=== PATIENT | female | born 1975 | race Caucasian/White ===

== ENCOUNTER 2017-03-29 14:29 | Emergency (ER) | payer BC, OTHER ==
[2017-03-29 14:46] VITALS: BP 125/74
--- NOTE | 2017-03-29 15:40 | EDM.PDOC ---
ED HPI GENERAL MEDICAL PROBLEM - General Chief Complaint: General Stated Complaint: foot pain Time Seen by Provider: 03/29/17 15:20 Source of Information: Reports: RN - History of Present Illness INITIAL COMMENTS - FREE TEXT/NARRATIVE: 3 days ago she was breaking up some tree branches that were in her yard in preparation for a bonfire. A branch was propped against the fire pit and she tried to break the branch using her left foot while wearing flip flop sandals. The branch was about 1 inch and was dry because it was from last summer. The branch broke at which point she had pain across the top of her foot, but it wasn 't too severe. She went for a walk the next day which was yesterday while wearing ankle weights. The pain increased and radiates into the ankle. Originally there was no ankle pain. She has noted some swelling across the top of the mid-foot. She has used crutches in the past. History of right foot fracture twice in the past and has used crutches. 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: Acetaminophen, NSAIDS Left Feet Pain Score (Numeric/FACES): 8 - Related Data Allergies Allergy/AdvReac Type Severity Reaction Status Date / Time acetaminophen [From Vicodin] Allergy Rash Verified 03/29/17 14:32 hydrocodone bitartrate Allergy Rash Verified 03/29/17 14:32 [From Vicodin] Home Meds: Home Meds FLUoxetine [PROzac] 20 mg PO DAILY 03/29/16 [History] Omeprazole [Omeprazole] 20 mg PO DAILY 03/29/16 [History] Zolpidem Tartrate [Zolpidem Tartrate] 5 mg PO DAILY 03/29/16 [History] lamoTRIgine [Lamotrigine] 25 mg PO DAILY 03/29/16 [History] Past Medical History Cardiovascular History: Reports: High Cholesterol, Hypertension, [place] Respiratory History: Reports: Asthma, Bronchitis, Recurrent Gastrointestinal History: Reports: Cholelithiasis, Gastritis, GERD Musculoskeletal History: Reports: Arthritis, Fracture, Fibromyalgia Other Musculoskeletal History: hairline fx to arm in 5th grade unk arm, right toe fracture8 yrs ago and right foot fracture 8 yrs ago Neurological History: Reports: Concussion, Migraines Other Neuro History: 1991- concussion Psychiatric History: Reports: Anxiety, Bipolar, Depression Endocrine/Metabolic History: Reports: Diabetes, Type II Dermatologic History: Reports: Other (See Below) - Infectious Disease History Infectious Disease History: Reports: Measles - Past Surgical History GI Surgical History: Reports: Cholecystectomy Female Surgical History: Reports: Hysterectomy, Tubal Ligation Musculoskeletal Surgical History: Reports: Other (See Below) Social & Family History - Family History Family Medical History: Noncontributory - Tobacco Use Smoking Status *Q: Current Every Day Smoker Years of Tobacco use: 20 Packs/Tins Daily: 0.5 Second Hand Smoke Exposure: Yes - Caffeine Use Caffeine Use: Reports: Soda, Other Other Caffeine Use: IVETT caffeine drops (water flavoring) - Alcohol Use Days Per Week of Alcohol Use: 1 Number of Drinks Per Day: 6 Total Drinks Per Week: 6 - Recreational Drug Use Recreational Drug Use: No ED ROS GENERAL - Review of Systems Review Of Systems: ROS reveals no pertinent complaints other than HPI. ED EXAM, GENERAL - Physical Exam Exam: See Below Peripheral Pulses: 2+: Posterior Tibial (L), Dorsalis Pedis (L) Back Exam: Other Extremities: No Pedal Edema, Other (No left foot or ankle edema. Tender across dorsum of mid-foot and diffusely across the forefoot without toe tenderness. [place] toe nail pashto. Diffuse tenderness across the plantar foot. Palpation of the foot causes pain in the ankle, espacially near the medial malleolus. Mild tenderness at the medial malleolus at the soft tissues without any swelling. No calf tenderness. Toes with good perfusion and not tender.). No: Non-Tender, Pedal Edema, Slow Capillary Refill, Joint Swelling Course - Vital Signs Last Recorded V/S: Last Vital Signs Temp 99.9 F 03/29/17 14:35 Pulse 81 03/29/17 14:35 Resp 16 03/29/17 14:35 BP 125/74 03/29/17 14:35 Pulse Ox 97 03/29/17 14:35 - Orders/Labs/Meds Orders: Active Orders 24 hr Category Date Time Status Foot Comp Min 3V Lt [CR] Stat Exams 03/29/17 14:56 Taken Departure - Departure Time of Disposition: 15:47 Disposition: Home, Self-Care 01 Condition: good Clinical Impression: Sprain of foot, left Qualifiers: Encounter type: initial encounter Qualified Code(s): S93.602A - Unspecified sprain of left foot, initial encounter Ankle sprain Qualifiers: Encounter type: initial encounter Laterality: left - Discharge Information Instructions: Crutch Use, Foot Sprain, Ankle Sprain, [id number] Forms: ED Department Discharge - My Orders Last 24 Hours: My Active Orders 03/29/17 14:56 Foot Comp Min 3V Lt [CR] Stat - Assessment/Plan Last 24 Hours: My Active Orders 03/29/17 14:56 Foot Comp Min 3V Lt [CR] Stat
== END 2017-03-29 16:13 | disposition home or self-care (01) ==
LOC: LL.ED 14:29
DX: S93.602A Unspecified sprain of left foot, initial encounter (principal); E78.00 Pure hypercholesterolemia, unspecified; I10 Essential (primary) hypertension; I25.2 Old myocardial infarction; J45.909 Unspecified asthma, uncomplicated; K21.9 Gastro-esophageal reflux disease without esophagitis; F31.9 Bipolar disorder, unspecified; Z90.710 Acquired absence of both cervix and uterus; F17.210 Nicotine dependence, cigarettes, uncomplicated; Z88.5 Allergy status to narcotic agent; Z88.6 Allergy status to analgesic agent; Z90.49 Acquired absence of other specified parts of digestive tract; Z79.899 Other long term (current) drug therapy; X58.XXXA Exposure to other specified factors, initial encounter
CPT/HCPCS: 73630-LT; 99283

== ENCOUNTER 2017-08-04 20:31 | Emergency (ER) | payer BC ==
--- NOTE | 2017-08-04 20:34 | EDM.PDOC ---
ED HPI GENERAL MEDICAL PROBLEM - General Chief Complaint: Lower Extremity Injury/Pain Stated Complaint: left foot pain Time Seen by Provider: 08/04/17 20:32 Source of Information: Reports: Patient, Family (), Old Records ([facility] EMR. No paper hospital chart available.) History Limitations: Reports: No Limitations - History of Present Illness INITIAL COMMENTS - FREE TEXT/NARRATIVE: Patient was brought to the emergency room via private automobile by her for evaluation of 06/28 left foot pain after dropping a can of beans on her foot at home at 17:00 hours. She has been able to walk on the extremity with minimal difficulties with no history of foreign body, laceration, etc.. She has not fractured this foot in the past. No treatment prior to arrival to this facility. Onset: Today, Sudden Onset Date: 08/04/17 Onset Time: 17:00 Duration: Constant Location: Reports: Lower Extremity, Left. Denies: Radiates to Quality: Reports: Ache, Burning, Same as Previous Episode, Stabbing Severity: Severe Improves with: Reports: Rest Worsens with: Reports: Movement Context: Reports: Trauma (As above) Associated Symptoms: Denies: Confusion, Chest Pain, Cough, Diaphoresis, Fever/ Chills, Headaches, Loss of Appetite, Nausea/Vomiting, Shortness of Breath, Syncope, Weakness Treatments REINFORCED IRONWORKER: Reports: Other (see below) (None) left foot Pain Score (Numeric/FACES): 9 - Related Data Allergies Allergy/AdvReac Type Severity Reaction Status Date / Time acetaminophen [From Vicodin] Allergy Rash Verified 08/04/17 20:37 hydrocodone bitartrate Allergy Rash Verified 08/04/17 20:37 [From Vicodin] Home Meds: Home Meds FLUoxetine [PROzac] 20 mg PO DAILY 03/29/16 [History] Omeprazole 20 mg PO DAILY 03/29/16 [History] Zolpidem Tartrate 5 mg PO DAILY 03/29/16 [History] lamoTRIgine [Lamotrigine] 25 mg PO DAILY 03/29/16 [History] predniSONE [Prednisone] 5 mg PO DAILY 08/04/17 [History] Past Medical History Cardiovascular History: Reports: CAD, High Cholesterol, Hypertension, [place] Respiratory History: Reports: Asthma, Bronchitis, Recurrent Gastrointestinal History: Reports: Cholelithiasis, Gastritis, GERD Musculoskeletal History: Reports: Arthritis, Fracture, Fibromyalgia, Osteoarthritis Other Musculoskeletal History: hairline fx to arm in 5th grade unk arm, right toe fracture and right foot fracture in about 2009 Neurological History: Reports: Concussion, Head Trauma, Migraines Other Neuro History: 1992- concussion Psychiatric History: Reports: Anxiety, Bipolar, Depression Endocrine/Metabolic History: Reports: Diabetes, Type II, Obesity/BMI 30+ Dermatologic History: Reports: Other (See Below) Other Dermatologic History: Recurrent tinea - Infectious Disease History Infectious Disease History: Reports: Measles - Past Surgical History GI Surgical History: Reports: Cholecystectomy Female Surgical History: Reports: Hysterectomy, Tubal Ligation Musculoskeletal Surgical History: Reports: Arthroscopic Knee, Arthroscopic Procedure, Other (See Below) Other Musculoskeletal Surgeries/Procedures:: bilateral arthroscopic knee surgery Social & Family History - Family History Family Medical History: Noncontributory - Tobacco Use Smoking Status *Q: Current Every Day Smoker Tobacco Use Within Last Twelve Months: Cigarettes Years of Tobacco use: 27 Packs/Tins Daily: 1 (Started smoking at age 14) Used Tobacco, but Quit: Yes Smoking Cessation Information Provided To Patient: Yes Smoking Cessation Information Given Comment: smokes Second Hand Smoke Exposure: Yes Second Hand Smoke Education Provided: Yes - Caffeine Use Caffeine Use: Reports: Soda, Other Other Caffeine Use: IVETT caffeine drops (water flavoring) - Alcohol Use Alcohol Use History: Yes Days Per Week of Alcohol Use: 1 Number of Drinks Per Day: 6 Total Drinks Per Week: 6 Alcohol Use Frequency: Socially - Recreational Drug Use Recreational Drug Use: No - Living Situation & Occupation Living situation: Reports: , with Family Occupation: Employed ([employer]) Review of Systems - Review of Systems Review Of Systems: See Below Constitutional: Denies: Chills, Diaphoresis, Fever, Weakness Eyes: Reports: No Symptoms Ears: Reports: No Symptoms Nose: Reports: Clear Discharge Mouth/Throat: Reports: No Symptoms Respiratory: Reports: No Symptoms. Denies: Shortness of Breath, Wheezing ( Completed antibiotics for recent bronchitis with patient about ready to complete tapering prednisone regimen), Pleuritic Chest Pain, Cough, Sputum Cardiovascular: Reports: No Symptoms. Denies: Chest Pain, Lightheadedness, Palpitations GI/Abdominal: Reports: No Symptoms. Denies: Abdominal Pain Genitourinary: Reports: No Symptoms Musculoskeletal: Reports: Foot Pain (Left foot pain as above) Skin: Reports: Bruising (Mild left foot). Denies: Diaphoresis, Wound Neurological: Reports: Tingling (Mild left foot to the big toe), Difficulty Walking (Mild secondary to foot pain). Denies: Dizziness, Headache, Numbness, Paresthesia, Weakness Psychiatric: Reports: No Symptoms. Denies: Confusion, Depression, Anxiety ED EXAM, GENERAL - Physical Exam Exam: See Below Exam Limited By: No Limitations General Appearance: Alert, WD/WN, No Apparent Distress Neck: Normal Inspection, Supple, Non-Tender, Full Range of Motion. No: Lymphadenopathy (L), Lymphadenopathy (R), Thyromegaly Respiratory/Chest: No Respiratory Distress, Lungs Clear, Normal Breath Sounds, No Accessory Muscle Use, Chest Non-Tender. No: Pleural Rub, Retractions Cardiovascular: Normal Peripheral Pulses, Regular Rate, Rhythm, No Edema, No Gallop, No JVD, No Murmur, No Rub. No: Gallop/S3, Gallop/S4, Friction Rub Peripheral Pulses: 2+: Radial (L), Radial (R), Dorsalis Pedis (L), Dorsalis Pedis (R) GI/Abdominal: Normal Bowel Sounds, Soft, Non-Tender, No Organomegaly, No Distention, No Abnormal Bruit, No Mass, Pelvis Stable, Other (Obese) (Female) Exam: Deferred Rectal (Female) Exam: Deferred Back Exam: Normal Inspection, Full Range of Motion. No: CVA Tenderness (L), CVA Tenderness (R), Muscle Spasm Extremities: Normal Range of Motion, No Pedal Edema, Normal Capillary Refill, Leg Pain (Mild to moderate palpation pain over the mid dorsal aspect of the left foot with mild localized swelling and minimal ecchymosis with no crepitation, deformity, or sign of fracture). No: Nacho's Sign Neurological: Alert, Oriented, CN II-XII Intact, Normal Cognition, Normal Gait, No Motor/Sensory Deficits Psychiatric: Normal Affect, Normal Mood Skin Exam: Warm, Dry, Intact, Normal Color, No Rash, Ecchymosis (Minimal as above), Stud(s) (Right paranasal). No: Diaphoretic, Petechiae, Wound/Incision Lymphatic: No Adenopathy Course - Vital Signs Last Recorded V/S: Last Vital Signs Temp 36.2 C 08/04/17 20:31 Pulse 89 08/04/17 20:31 Resp 16 08/04/17 20:31 BP 137/81 08/04/17 20:31 Pulse Ox 99 08/04/17 20:31 Vital Signs - 24 hr 08/04/17 20:31 Temperature [ 36.2 C Temporal] Pulse, 89 Peripheral [ Left Pulse Oximetry] Respiratory 16 Rate Blood Pressure 137/81 [Left Upper Arm ] O2 Sat by Pulse 99 Oximetry - Orders/Labs/Meds Orders: Active Orders 24 hr Category Date Time Status Foot Comp Min 3V Lt [CR] Stat Exams 08/04/17 20:34 Taken Obtain Past Medical Record [OM.PC] Routine Oth 08/04/17 20:34 Active Labs: None Meds: None - Radiology Interpretation Free Text/Narrative:: X-rays of the left foot, complete, shows no evidence of fracture or dislocation. Mild to moderate osteoarthritic changes noted Departure - Departure Time of Disposition: 21:15 Disposition: Home, Self-Care 01 Condition: Good Clinical Impression: Tobacco abuse counseling, Peptic reflux disease, Mixed anxiety depressive disorder Contusion Qualifiers: Encounter type: initial encounter Contusion area: foot Laterality: left Qualified Code(s): S90.32XA - Contusion of left foot, initial encounter Osteoarthritis Qualifiers: Osteoarthritis location: multiple joints Osteoarthritis type: primary Qualified Code(s): M15.0 - Primary generalized (osteo)arthritis Asthma Qualifiers: Asthma severity: mild Asthma persistence: intermittent Asthma complication type : uncomplicated Qualified Code(s): J45.20 - Mild intermittent asthma, uncomplicated Hyperlipidemia Qualifiers: Hyperlipidemia type: unspecified Qualified Code(s): E78.5 - Hyperlipidemia, unspecified - Discharge Information Instructions: Contusion, [id number] Forms: ED Department Discharge, ED Return to Work/School Form Additional Instructions: 1. Follow up with your regular provider in 10-14 days as needed, if symptoms persist. 2. BenGay or equivalent, heating pad, and/or ice packs as directed. 3. Work excuse- See Form 4. Tylenol 650 mg by mouth every 4 hours and/or OTC ibuprofen 2-3 tabs by mouth every 6 hours with food as directed./needed. 5. Activity and weightbearing as tolerated 6. Stop all tobacco use HANANE as directed/per provided information and consider contacting Quit LIne, etc.. - Problem List & Annotations (1) Contusion SNOMED Code(s): 228215219 Code(s): T14.8XXA - OTHER INJURY OF UNSPECIFIED BODY REGION, INITIAL ENCOUNTER Status: Acute Priority: High Onset Date: 08/04/17 Annotation/ Comment:: Mild Contusion of the left foot. Work excuse provided. Activity as tolerated/directed. She already has crutches at home, although she will likely not need this based on today's exam Qualifiers: Encounter type: initial encounter Contusion area: foot Laterality: left Qualified Code(s): S90.32XA - Contusion of left foot, initial encounter (2) Osteoarthritis SNOMED Code(s): 103828402 Code(s): M19.90 - UNSPECIFIED OSTEOARTHRITIS, UNSPECIFIED SITE Status: Chronic Priority: Medium Annotation/Comment:: Otherwise stable by history Qualifiers: Osteoarthritis location: multiple joints Osteoarthritis type: primary Qualified Code(s): M15.0 - Primary generalized (osteo)arthritis (3) Tobacco abuse counseling SNOMED Code(s): 784520790, 570533872 Code(s): Z71.6 - TOBACCO ABUSE COUNSELING Status: Chronic Priority: Medium Annotation/Comment:: Tobacco cessation strongly encouraged both for the patient and her with information provided (4) Asthma SNOMED Code(s): 143181266 Code(s): J45.909 - UNSPECIFIED ASTHMA, UNCOMPLICATED Status: Chronic Priority: Medium Annotation/Comment:: Recent mild reactive airway disease versus asthma exacerbation with patient already completing her antibiotics for her bronchitis and is about ready to complete her prednisone with no recent fever or significant bronchitic type symptoms Qualifiers: Asthma severity: mild Asthma persistence: intermittent Asthma complication type: uncomplicated Qualified Code(s): J45.20 - Mild intermittent asthma, uncomplicated (5) Peptic reflux disease SNOMED Code(s): 14484210 Code(s): K21.9 - GASTRO-ESOPHAGEAL REFLUX DISEASE WITHOUT ESOPHAGITIS Status: Chronic Priority: Medium Annotation/Comment:: Stable by history despite prednisone therapy (6) Mixed anxiety depressive disorder SNOMED Code(s): 878122578 Code(s): F41.8 - OTHER SPECIFIED ANXIETY DISORDERS Status: Chronic Priority: Medium Annotation/Comment:: Stable by history - Problem List Review Problem List Initiated/Reviewed/Updated: Yes - My Orders Last 24 Hours: My Active Orders 08/04/17 20:34 Foot Comp Min 3V Lt [CR] Stat Obtain Past Medical Record [OM.PC] Routine - Assessment/Plan Last 24 Hours: My Active Orders 08/04/17 20:34 Foot Comp Min 3V Lt [CR] Stat Obtain Past Medical Record [OM.PC] Routine Assessment:: As above Plan: As above. Extensive precautions were given to the patient and her , who are in agreement with the treatment plan. See Patient Instructions for further treatment and plan.
[2017-08-04 20:37] VITALS: BP 137/81
== END 2017-08-04 21:15 | disposition home or self-care (01) ==
LOC: LL.ED 20:31
DX: S90.32XA Contusion of left foot, initial encounter (principal); E66.9 Obesity, unspecified; F17.210 Nicotine dependence, cigarettes, uncomplicated; J45.20 Mild intermittent asthma, uncomplicated; M15.0 Primary generalized (osteo)arthritis; I25.10 Atherosclerotic heart disease of native coronary artery without angina pectoris; I10 Essential (primary) hypertension; K21.9 Gastro-esophageal reflux disease without esophagitis; F41.8 Other specified anxiety disorders; Z71.6 Tobacco abuse counseling; Z79.899 Other long term (current) drug therapy; Z88.8 Allergy status to other drugs, medicaments and biological substances; W20.8XXA Other cause of strike by thrown, projected or falling object, initial encounter
CPT/HCPCS: 73630-LT; 99284

== ENCOUNTER 2019-05-05 14:20 | Emergency (ER) | payer BC, OTHER ==
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
[2019-05-05 14:56] LABS: SODIUM,NA 141 mmol/L (136-145)
[2019-05-05 15:33] LABS: CHLORIDE,CL 104 mmol/L (98-107)
== END 2019-05-05 16:00 | disposition home or self-care (01) ==
LOC: LL.ED 14:20
DX: M54.2 Cervicalgia (principal); M25.511 Pain in right shoulder; I10 Essential (primary) hypertension; E78.00 Pure hypercholesterolemia, unspecified; F31.9 Bipolar disorder, unspecified; F41.9 Anxiety disorder, unspecified; Z79.899 Other long term (current) drug therapy; Z88.6 Allergy status to analgesic agent; V89.2XXA Person injured in unspecified motor-vehicle accident, traffic, initial encounter
CPT/HCPCS: 36000; 36415; 71045; 72125; 80053; 82150; 82550; 82553; 83690; 84484; 85025; 99291; G0390

== ENCOUNTER 2019-12-18 19:10 | Emergency (ER) | payer BC, OTHER ==
[2019-12-18 19:19] VITALS: BP 147/84; PULSE 84
[2019-12-18] MEDS ORDERED: Ketorolac 60 MG/2 ML SDV IM ONE (19:35)
[2019-12-18] MEDS ORDERED: FLU Vacc QS2019-20(6MOS+)/PF 60 MCG/0.5 ML SYRINGE IM ONE (19:45)
--- NOTE | 2019-12-18 20:45 | EDM.PDOC ---
ED HPI GENERAL MEDICAL PROBLEM - General Chief Complaint: General Stated Complaint: trunk pain Time Seen by Provider: 12/18/19 19:10 Source of Information: Reports: Patient, Old Records ([facility] chart/EMR) History Limitations: Reports: No Limitations - History of Present Illness INITIAL COMMENTS - FREE TEXT/NARRATIVE: The patient drove herself to the emergency room via private automobile for evaluation of a Workmen's Compensation injury, which occurred at about 14:30 hours on 12/15/19. 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 She has some moderate 8 /10 8 rib pain and discomfort since that time with symptoms refractory to Tylenol, although she has not taken any Tylenol today. No history of head injury , loss of consciousness, visual changes, neck/back pain, neurological deficits, or other complaints or injuries. The patient denies any chest pain/pressure, heart flutter, dizziness, orthostasis, orthopnea, diaphoresis, paresthesias, recent decreased exercise tolerance, or any other anginal-type symptoms. No recent history of abdominal pain, heartburn, nausea, diarrhea, melena, gross hematochezia, or any food intolerance, including fatty foods, etc.. The patient also denies any recent fever, cough, wheezing, dyspnea, etc.. Onset: Sudden Onset Date: 12/15/19 Onset Time: 14:30 Duration: Constant, Getting Worse Location: Reports: Chest. Denies: Head, Face, Neck, Abdomen, Back, Pelvis, Upper Extremity, Left, Upper Extremity, Right, Lower Extremity, Left, Lower Extremity, Right, Generalized, Radiates to Quality: Reports: Same as Previous Episode, Sharp, Throbbing Improves with: Reports: None Worsens with: Reports: None Context: Reports: Trauma (As above) Associated Symptoms: Denies: Confusion, Chest Pain, Cough, Diaphoresis, Fever/ Chills, Headaches, Loss of Appetite, Malaise, Nausea/Vomiting, Shortness of Breath, Syncope, Weakness Treatments WEEDER: Reports: Acetaminophen Right Lower Chest Pain Score (Numeric/FACES): 8 - Related Data Allergies Allergy/AdvReac Type Severity Reaction Status Date / Time hydrocodone bitartrate Allergy Rash Verified 10/18/18 20:23 [From Vicodin] Home Meds: Home Meds FLUoxetine [PROzac] 20 mg PO DAILY 03/29/16 [History] Omeprazole 20 mg PO DAILY 03/29/16 [History] Zolpidem Tartrate 5 mg PO BEDTIME 03/29/16 [History] lamoTRIgine [Lamotrigine] 50 mg PO DAILY 03/29/16 [History] Albuterol [Ventolin HFA] 1 - 2 puff INH Q4H PRN 02/12/18 [History] Ipratropium/Albuterol Sulfate [Iprat-Albut 0.5-3(2.5) mg/3 ml] 3 ml IH Q6H PRN 02/12/18 [History] ALPRAZolam [Xanax] 0.25 mg PO Q8H PRN 03/16/18 [History] Past Medical History HEENT History: Reports: Impaired Vision. Denies: Allergic Rhinitis, Cataract, Glaucoma, Hard of Hearing, Macular Degeneration, Otitis Media, Retinal Detachment Other HEENT History: She wears glasses. Cardiovascular History: Reports: High Cholesterol, Hypertension Respiratory History: Reports: Asthma, Bronchitis, Recurrent, Intubation, Previous. Denies: Intubation, Difficult Gastrointestinal History: Reports: Cholelithiasis, Fatty Liver, Gastritis, GERD , Jaundice, Other (See Below). Denies: Celiac Disease, GI Bleed, Hepatitis, Hiatal Hernia, Inflammatory Bowel Disease, Irritable Bowel Syndrome, Pancreatitis, PUD Other Gastrointestinal History: jaundice. Fatty liver secondary to hyperlipidemia and obesity. Genitourinary History: Reports: None KNOT BORER History: Reports: Dysfunctional Uterine Bleeding, Fibroids, , Spontaneous : 4 Para: 3 Other KNOT BORER History: Postsurgical menopause as below secondary to dysfunctional uterine bleeding and fibroids. First trimester SAB not requiring D &C. Otherwise, Full term without complications during pregnancies or deliveries Musculoskeletal History: Reports: Arthritis, Fracture, Fibromyalgia, Osteoarthritis Other Musculoskeletal History: hairline fx to arm in 5th grade unk arm, right toe fracture and right foot fracture in about 2008. Plantar fasciitis with surgery as below. Neurological History: Reports: Concussion, Head Trauma, Migraines Other Neuro History: 1992- concussion Psychiatric History: Reports: Anxiety, Bipolar, Depression Endocrine/Metabolic History: Reports: Obesity/BMI 30+, Other (See Below) Other Endocrine/Metabolic History: Hypoalbuminemia. Hematologic History: Reports: None Immunologic History: Reports: None Oncologic (Cancer) History: Reports: None Dermatologic History: Reports: Other (See Below) Other Dermatologic History: Recurrent tinea - Infectious Disease History Infectious Disease History: Reports: Measles. Denies: MRSA Other Infectious Disease History: received varicella when children were small - Past Surgical History Head Surgeries/Procedures: Reports: None HEENT Surgical History: Reports: Oral Surgery Other HEENT Surgeries/Procedures: teeth extraction Cardiovascular Surgical History: Reports: None Respiratory Surgical History: Reports: None GI Surgical History: Reports: Cholecystectomy, EGD, Other (See Below) Other GI Surgeries/Procedures: Laparoscopic cholecystectomy in May 2012 with subsequent EGD in May 2012. Female Surgical History: Reports: Hysterectomy, Tubal Ligation, Other (See Below) Other Female Surgeries/Procedures: Complete hysterectomy in 2005 secondary to dysfunctional uterine bleeding and fibroids. Bilateral tubal ligation in 2003. Endocrine Surgical History: Reports: None Neurological Surgical History: Reports: None Musculoskeletal Surgical History: Reports: Arthroscopic Knee, Arthroscopic Procedure, Other (See Below) Other Musculoskeletal Surgeries/Procedures:: bilateral arthroscopic knee surgery. Right foot calcaneal spur revision with revision of plantar fascia on 10/11/18 Oncologic Surgical History: Reports: None Dermatological Surgical History: Reports: None - Past Imaging History Past Imaging History: Reports: CAT Scan (Cervical spine on 05/05/19) Social & Family History - Family History Cardiac: Reports: CAD, [place], Other (See Below) Other Cardiac Family History: Father with history of recurrent MIs initially in his late 30s - Tobacco Use Smoking Status *Q: Current Every Day Smoker Tobacco Use Within Last Twelve Months: Cigarettes Years of Tobacco use: 31 Packs/Tins Daily: 0.5 Packs/Tins Daily Comment: Started smoking at age 13 with maximum use of 1.5 packs per day. Used Tobacco, but Quit: No Smoking Cessation Information Provided To Patient: Yes Second Hand Smoke Exposure: Yes Source of Second Hand Smoke Exposure: smokes. Second Hand Smoke Education Provided: Yes - Caffeine Use Caffeine Use: Reports: Coffee, Soda Other Caffeine Use: 3 cups of coffee per week. 20 sodas per week. Additional moderate caffeine use as IVETT caffeine drops (water flavoring) on a daily basis. - Alcohol Use Alcohol Use History: Yes Days Per Week of Alcohol Use: 1 Number of Drinks Per Day: 6 Number of Drinks Per Day Comment: No previous DWIs, problems with alcohol abuse , etc. Total Drinks Per Week: 6 Alcohol Use in Last Twelve Months: Yes - Recreational Drug Use Recreational Drug Use: No Drug Use in Last 12 Months: No Recreational Drug Type: Denies: Amphetamines (Speed), Cocaine, Heroin, Inhalants (Glues, Solvents, Aerosols), LSD (Acid), Marijuana/Hashish, Methamphetamine, Morphine, Oxycodone - Living Situation & Occupation Living situation: Reports: (Second and 2002 with one child from this marriage.), (First in about 2000 with 2 children from this relationship), with Family () Occupation: Employed ([employer]) ED ROS GENERAL - Review of Systems Review Of Systems: Comprehensive ROS is negative, except as noted in HPI. ED EXAM, GENERAL - Physical Exam Exam: See Below Exam Limited By: No Limitations General Appearance: Alert, WD/WN, No Apparent Distress Head: Atraumatic, Normocephalic. No: Facial Swelling, Facial Tenderness, Sinus Tenderness Neck: Normal Inspection, Supple, Non-Tender, Full Range of Motion. No: Lymphadenopathy (L), Lymphadenopathy (R), Thyromegaly Respiratory/Chest: No Respiratory Distress, Lungs Clear, Normal Breath Sounds, No Accessory Muscle Use. No: Chest Non-Tender (Mild to moderate inferior right axillary palpation pain without swelling, ecchymosis, crepitation, deformity, etc.), Pleural Rub, Retractions Cardiovascular: Normal Peripheral Pulses, Regular Rate, Rhythm, No Edema, No Gallop, No JVD, No Murmur, No Rub. No: Gallop/S3, Gallop/S4, Friction Rub Peripheral Pulses: 2+: Radial (L), Radial (R) GI/Abdominal: Normal Bowel Sounds, Soft, Non-Tender, No Organomegaly, No Distention, No Abnormal Bruit, No Mass, Pelvis Stable. No: Guarding (Female) Exam: Deferred Rectal (Female) Exam: Deferred Back Exam: Normal Inspection, Full Range of Motion. No: CVA Tenderness (L), CVA Tenderness (R) Extremities: Normal Inspection, Normal Range of Motion, Non-Tender, No Pedal Edema, Normal Capillary Refill. No: Nacho's Sign Neurological: Alert, Oriented, CN II-XII Intact, Normal Cognition, Normal Gait, No Motor/Sensory Deficits Psychiatric: Normal Affect, Normal Mood Skin Exam: Warm, Dry, Intact, Normal Color, No Rash, Stud(s) (Right nasal). No : Diaphoretic, Ecchymosis, Petechiae, Wound/Incision Lymphatic: No Adenopathy Course - Vital Signs Last Recorded V/S: Last Vital Signs Temp 36.2 C 12/18/19 19:18 Pulse 84 12/18/19 19:18 Resp 14 12/18/19 19:18 BP 147/84 H 12/18/19 19:18 Pulse Ox 100 12/18/19 19:18 Vital Signs - 24 hr 12/18/19 19:18 Temperature [ 36.2 C Temporal] Pulse, 84 Peripheral [ Right Pulse Oximetry] Respiratory 14 Rate Blood Pressure 147/84 H [Right Upper Arm] O2 Sat by Pulse 100 Oximetry - Orders/Labs/Meds Orders: Active Orders 24 hr Category Date Time Status Influenza Vaccine Charge [RC] .DISCHARGE Care 12/18/19 19:35 Active Ribs 2V w Chest Rt [CR] Stat Exams 12/18/19 19:23 Taken Obtain Past Medical Record [OM.PC] Routine Oth 12/18/19 19:23 Active Labs: None Meds: Medications Discontinued Medications Generic Name Dose Route Start Last Admin Trade Name Freq PRN Reason Stop Dose Admin Influenza Virus Vaccine 1 each 12/18/19 19:35 Pharmacy To Dose - Influenza Vaccine IM 12/18/19 19:36 ONETIME ONE Influenza Virus Vaccine 60 mcg 12/18/19 19:45 12/18/19 19:54 Fluzone Quad [id number] Syringe IM 12/18/19 19:46 60 mcg .ONCE ONE Administration Ketorolac Tromethamine 60 mg 12/18/19 19:35 12/18/19 19:55 Toradol IM 12/18/19 19:36 60 mg ONETIME ONE Administration - Radiology Interpretation Free Text/Narrative:: X-rays of the right ribs, 2 views, with additional one view of the chest shows no evidence of fracture, pneumothorax, pulmonary infiltrates, cardiomegaly, etc. Note mild pulmonary obstructive disease. Departure - Departure Time of Disposition: 20:55 Disposition: Home, Self-Care 01 Condition: Good Clinical Impression: Tobacco abuse counseling, Mixed anxiety depressive disorder, Peptic reflux disease Chest wall contusion Qualifiers: Encounter type: initial encounter Laterality: right Qualified Code(s): S20.211A - Contusion of right front wall of thorax, initial encounter Asthma Qualifiers: Asthma severity: mild Asthma persistence: intermittent Asthma complication type : uncomplicated Qualified Code(s): J45.20 - Mild intermittent asthma, uncomplicated Hyperlipidemia Qualifiers: Hyperlipidemia type: unspecified Qualified Code(s): E78.5 - Hyperlipidemia, unspecified Hypertension Qualifiers: Hypertension type: essential hypertension Qualified Code(s): I10 - Essential ( primary) hypertension Osteoarthritis Qualifiers: Osteoarthritis location: multiple joints Osteoarthritis type: primary Qualified Code(s): M15.0 - Primary generalized (osteo)arthritis - Discharge Information *PRESCRIPTION DRUG MONITORING PROGRAM REVIEWED*: Not Applicable *COPY OF PRESCRIPTION DRUG MONITORING REPORT IN PATIENT TIMOTEO: Not Applicable Instructions: Chest Contusion, Adult, [id number], Rib Contusion Referrals: PCP,None [Primary Care Provider] - Forms: ED Department Discharge, ED Return to Work/School Form Additional Instructions: 1. Follow up with your regular provider in 10-14 days as needed, if symptoms persist. Bring these discharge instructions with you to that visit.. 2. Tylenol 650 mg by mouth every 4 hours and/or OTC ibuprofen 2-3 tabs by mouth every 6 hours with food as directed./needed. You may stagger these medications for 48-72 hours only, which essentially means that you are receiving a pain medication about every 2 hours. Next dose of ibuprofen in 6 hours as needed secondary to medications given in the emergency room 3. BenGay or equivalent, heating pad, and/or ice packs as directed. 4. Work excuse- See Form 5. Activity restrictions, including 10 pound lifting restriction until symptoms resolve follow-up required if not improved in 10-14 days. 6. Stop all tobacco use HANANE as directed/per provided information and consider contacting Quit LIne, etc.. 7. Immediately after this visit verify that your cellular telephone's voicemail has been activated and is empty. Also verify that your home telephone 's answering machine is operating properly and has space to receive messages. Note that it is sometimes necessary for us to be able to contact you at a later date to discuss your medical care. 8. Please remember that we are ALWAYS here for you and want to answer any questions you may have. Feel free to call the hospital any time and we call you back HANANE. Sepsis Event Note - Evaluation Sepsis Screening Result: No Definite Risk - Focused Exam Vital Signs: Vital Signs Temp Pulse Resp BP Pulse Ox 12/18/19 19:18 36.2 C 84 14 147/84 H 100 Date Exam was Performed: 12/19/19 Time Exam was Performed: 00:56 - Problem List & Annotations (1) Chest wall contusion SNOMED Code(s): 25195810 Code(s): S20.219A - CONTUSION OF UNSPECIFIED FRONT WALL OF THORAX, INIT ENCNTR Status: Acute Priority: High Current Visit: Yes Onset Date: 12/15 Annotation/Comment:: Symptomatic relief as per discharge instructions. Workmen's Compensation and work excuse forms were completed. Close follow-up by regular providers depending on her clinical course. IM Toradol given in the emergency room with overall good results. Qualifiers: Encounter type: initial encounter Laterality: right Qualified Code(s): S20.211A - Contusion of right front wall of thorax, initial encounter (2) Hypertension SNOMED Code(s): 23963612 Code(s): I10 - ESSENTIAL (PRIMARY) HYPERTENSION Status: Chronic Priority : Medium Current Visit: Yes Annotation/Comment:: Once again not currently under medical therapy. Note significant caffeine intake with decreased caffeine intake encouraged. Continue to observe closely through regular provider. Qualifiers: Hypertension type: essential hypertension Qualified Code(s): I10 - Essential (primary) hypertension (3) Mixed anxiety depressive disorder SNOMED Code(s): 742902365 Code(s): F41.8 - OTHER SPECIFIED ANXIETY DISORDERS Status: Chronic Priority: Medium Current Visit: Yes Annotation/Comment:: Stable by history with current medical therapy. (4) Osteoarthritis SNOMED Code(s): 305224440 Code(s): M19.90 - UNSPECIFIED OSTEOARTHRITIS, UNSPECIFIED SITE Status: Chronic Priority: Medium Current Visit: Yes Annotation/Comment:: Otherwise stable by history Qualifiers: Osteoarthritis location: multiple joints Osteoarthritis type: primary Qualified Code(s): M15.0 - Primary generalized (osteo)arthritis (5) Tobacco abuse counseling SNOMED Code(s): 388133086, 789223379, 310673346 Code(s): Z71.6 - TOBACCO ABUSE COUNSELING Status: Chronic Priority: Medium Current Visit: Yes Annotation/Comment:: Tobacco cessation once again strongly encouraged with information once again provided to the patient. (6) Asthma SNOMED Code(s): 215317225 Code(s): J45.909 - UNSPECIFIED ASTHMA, UNCOMPLICATED Status: Chronic Priority: Medium Current Visit: Yes Annotation/Comment:: Stable by history with no recent fever or bronchitic type symptoms. Tobacco use history as above. Influenza booster given today. Qualifiers: Asthma severity: mild Asthma persistence: intermittent Asthma complication type: uncomplicated Qualified Code(s): J45.20 - Mild intermittent asthma, uncomplicated - Problem List Review Problem List Initiated/Reviewed/Updated: Yes - My Orders Last 24 Hours: My Active Orders 12/18/19 19:23 Ribs 2V w Chest Rt [CR] Stat Obtain Past Medical Record [OM.PC] Routine 12/18/19 19:35 Influenza Vaccine Charge [RC] .DISCHARGE - Assessment/Plan Last 24 Hours: My Active Orders 12/18/19 19:23 Ribs 2V w Chest Rt [CR] Stat Obtain Past Medical Record [OM.PC] Routine 12/18/19 19:35 Influenza Vaccine Charge [RC] .DISCHARGE Assessment:: As above Plan: As above. Extensive precautions were given to the patient, who is in agreement with the treatment plan. See Patient Instructions for further treatment and plan.
== END 2019-12-18 20:55 | disposition home or self-care (01) ==
LOC: LL.ED 19:10 → LL.MS 20:40 → UNDOADMIN 20:40 → LL.ED 20:55
DX: S20.211A Contusion of right front wall of thorax, initial encounter (principal); J45.20 Mild intermittent asthma, uncomplicated; K21.9 Gastro-esophageal reflux disease without esophagitis; E78.5 Hyperlipidemia, unspecified; F41.8 Other specified anxiety disorders; M15.0 Primary generalized (osteo)arthritis; F17.210 Nicotine dependence, cigarettes, uncomplicated; I10 Essential (primary) hypertension; Z88.5 Allergy status to narcotic agent; Z79.899 Other long term (current) drug therapy; Z71.6 Tobacco abuse counseling; X58.XXXA Exposure to other specified factors, initial encounter
CPT/HCPCS: 71101-RT; 90686; 96372; 99284-25; G0008; J1885

== ENCOUNTER 2021-11-17 19:54 | Emergency (ER) | payer BC ==
[2021-11-17 19:58] VITALS: PULSE 88
[2021-11-17 20:45] VITALS: BP 151/91
== END 2021-11-17 20:30 | disposition home or self-care (01) ==
LOC: LL.ED 19:54
DX: S61.011A Laceration without foreign body of right thumb without damage to nail, initial encounter (principal); E78.00 Pure hypercholesterolemia, unspecified; I10 Essential (primary) hypertension; E66.9 Obesity, unspecified; Z68.30 Body mass index [BMI] 30.0-30.9, adult; Z88.5 Allergy status to narcotic agent; Z79.899 Other long term (current) drug therapy; W26.0XXA Contact with knife, initial encounter
CPT/HCPCS: 12001; 99282-25; 99283

== ENCOUNTER 2022-06-04 20:25 | Emergency (ER) | payer BC ==
[2022-06-04] MEDS ORDERED: Ondansetron 4 MG/2 ML SDV IVPUSH ONE (20:33)
[2022-06-04] MEDS ORDERED: Ketorolac 15 MG/ML SDV IVPUSH ONE (20:34)
[2022-06-04] MEDS ORDERED: Sodium Chloride 0.9% 1,000 ML IV SCH (20:45)
[2022-06-04 21:28] VITALS: BP 142/78; PULSE 91
[2022-06-04 21:44] LABS: CHLORIDE,CL 104 mmol/L (98-107); SODIUM,NA 138 mmol/L (136-145)
[2022-06-04 21:45] LABS: ANION GAP 12.9 meq/L (7-15); ESTIMATED GFR 86 mL/min (>=60)
[2022-06-04 22:06] LABS: CORONAVIRUS COVID-19 NAA POSITIVE (NEGATIVE); RESPIRATORY SYNCYTIAL VIR NAA NEGATIVE (NEGATIVE)
[2022-06-04] MEDS ORDERED: traMADol 50 MG Tab PO ONE (22:21)
== END 2022-06-04 23:16 | disposition home or self-care (01) ==
LOC: LL.ED 20:25
DX: U07.1 COVID-19 (principal); E78.00 Pure hypercholesterolemia, unspecified; I10 Essential (primary) hypertension; E66.9 Obesity, unspecified; Z68.30 Body mass index [BMI] 30.0-30.9, adult; Z88.5 Allergy status to narcotic agent; Z79.899 Other long term (current) drug therapy
CPT/HCPCS: 0241U; 36415; 71045; 80053; 81003; 83605; 83735; 85025; 96361; 96374; 96375; 99284; 99284-25; A9270-GY; J1885; J2405; J3475; J7030

== ENCOUNTER 2023-01-19 19:43 | Emergency (ER) | payer BC ==
[2023-01-19] MEDS: Ketorolac 30 MG/ML SDV IM ONE (20:29)
[2023-01-19 21:40] VITALS: BP 139/87; PULSE 68
== END 2023-01-19 21:31 | disposition home or self-care (01) ==
LOC: LL.ED 19:43
DX: S93.432A Sprain of tibiofibular ligament of left ankle, initial encounter (principal); I10 Essential (primary) hypertension; J45.909 Unspecified asthma, uncomplicated; K21.9 Gastro-esophageal reflux disease without esophagitis; E66.9 Obesity, unspecified; Z68.30 Body mass index [BMI] 30.0-30.9, adult; Z88.8 Allergy status to other drugs, medicaments and biological substances; W00.9XXA Unspecified fall due to ice and snow, initial encounter; Y92.009 Unspecified place in unspecified non-institutional (private) residence as the place of occurrence of the external cause
CPT/HCPCS: 73610-LT; 96372; 99283; J1885

== ENCOUNTER 2023-04-14 09:35 | Emergency (ER) | payer BC ==
[2023-04-14] MEDS ORDERED: Sodium Chloride 0.9% 10 ML Syringe FLUSH PRN (09:46)
[2023-04-14 10:17] LABS: HEMATOCRIT 39.8 % (34.0-46.0); HEMOGLOBIN 12.9 g/dL (11.7-15.5); MEAN CORPUSCULAR HEMOGLOBIN 31.2 pg (28.2-33.3); MEAN CORPUSCULAR HGB CONC 32.4 g/dL (31.7-36.0); MEAN CORPUSCULAR VOLUME 96.4 fL (84.0-98.0); PLATELET COUNT,PLT 275 K/uL (150-350); RED BLOOD CELL COUNT 4.13 M/uL (3.77-5.09); RED CELL DISTRIBUTION WIDTH 12.9 % (11.2-14.1); WHITE BLOOD CELL COUNT,WBC 7.2 K/uL (4.0-10.2)
[2023-04-14 10:37] LABS: ALANINE AMINOTRANSFERASE,ALT 29 U/L (12-78); ALBUMIN 3.6 g/dL (3.4-5.0); ALKALINE PHOSPHATASE 146 IU/L (46-116); ANION GAP 8.2 meq/L (7-15); ASPARTATE AMNIOTRANSFERASE,AST 20 U/L (15-37); BILIRUBIN TOTAL 0.4 mg/dL (0.2-1.0); BLOOD UREA NITROGEN,BUN 14 mg/dL (7-18); CALCIUM 9.3 mg/dL (8.5-10.1); CARBON DIOXIDE,CO2 27.8 mmol/L (21.0-32.0); CHLORIDE,CL 104 mmol/L (98-107); CREATININE 0.82 mg/dL (0.51-1.17); GLUCOSE RANDOM 93 mg/dL (70-99); POTASSIUM,K 3.8 mmol/L (3.5-5.1); PROTEIN TOTAL,TP 7.1 g/dL (6.4-8.2); SODIUM,NA 140 mmol/L (136-145)
[2023-04-14 10:44] LABS: ESTIMATED GFR 88 mL/min (>=60)
[2023-04-14 13:57] VITALS: BP 163/99; PULSE 65
== END 2023-04-14 13:40 | disposition home or self-care (01) ==
LOC: LL.ED 09:35
DX: R07.89 Other chest pain (principal); J45.909 Unspecified asthma, uncomplicated; E78.00 Pure hypercholesterolemia, unspecified; I10 Essential (primary) hypertension; E66.9 Obesity, unspecified; Z68.30 Body mass index [BMI] 30.0-30.9, adult; Z88.5 Allergy status to narcotic agent; Z79.899 Other long term (current) drug therapy; Z72.0 Tobacco use
CPT/HCPCS: 36415; 71046; 80053; 83880; 84484; 85027; 93005; 93010; 99284; 99285

== ENCOUNTER 2023-08-12 15:00 | Emergency (ER) | payer BC ==
[2023-08-12 15:22] LABS: APPEARANCE,URINE SLIGHTLY CLOUDY; BILIRUBIN,URINE NEGATIVE (NEGATIVE); COLOR,URINE YELLOW; GLUCOSE,URINE NEGATIVE (NEGATIVE); KETONES,URINE NEGATIVE (NEGATIVE); LEUKOCYTE ESTERASE,URINE NEGATIVE (NEGATIVE); NITRITE,URINE NEGATIVE (NEGATIVE); OCCULT BLOOD,URINE NEGATIVE (NEGATIVE); PH,URINE 5.5 (5.0-9.0); PROTEIN,URINE NEGATIVE (NEGATIVE); UROBILINOGEN,URINE 0.2 E.U./dL (0.2-1.0)
[2023-08-12] MEDS: Ondansetron 4 MG/2 ML SDV IVPUSH ONE (15:56)
[2023-08-12] MEDS: Ketorolac 30 MG/ML SDV IVPUSH ONE (15:56)
[2023-08-12] MEDS: Sodium Chloride 0.9% 10 ML Syringe FLUSH PRN (15:59)
[2023-08-12 16:22] LABS: BASOPHILS ABSOLUTE AUTO 0.02 K/uL (0.00-0.20); BASOPHILS PERCENT AUTO 0.2 % (0.0-2.0); EOSINOPHILS ABSOLUTE AUTO 0.27 K/uL (0.00-0.50); EOSINOPHILS PERCENT AUTO 2.6 % (0.0-5.0); HEMATOCRIT 40.4 % (34.0-46.0); HEMOGLOBIN 13.5 g/dL (11.7-15.5); LYMPHOCYTES PERCENT AUTO 25.2 % (10.0-50.0); MEAN CORPUSCULAR HEMOGLOBIN 31.7 pg (28.2-33.3); MEAN CORPUSCULAR HGB CONC 33.4 g/dL (31.7-36.0); MEAN CORPUSCULAR VOLUME 94.8 fL (84.0-98.0); MONOCYTES ABSOLUTE AUTO 0.71 K/uL (0.00-1.00); MONOCYTES PERCENT AUTO 6.9 % (2.0-14.0); NEUTROPHILS PERCENT AUTO 65.1 % (45.0-80.0); PLATELET COUNT,PLT 287 K/uL (150-350); RED BLOOD CELL COUNT 4.26 M/uL (3.77-5.09); WHITE BLOOD CELL COUNT,WBC 10.3 K/uL (4.0-10.2)
[2023-08-12 16:47] LABS: ALBUMIN 3.9 g/dL (3.4-5.0); BILIRUBIN TOTAL 0.4 mg/dL (0.2-1.0); CALCIUM 8.9 mg/dL (8.5-10.1); CARBON DIOXIDE,CO2 28.6 mmol/L (21.0-32.0); CREATININE 0.65 mg/dL (0.51-1.17); EST CRCL DRUG DOSING (CG) 94.21 mL/min; POTASSIUM,K 3.4 mmol/L (3.5-5.1); PROTEIN TOTAL,TP 7.2 g/dL (6.4-8.2)
[2023-08-12 16:48] LABS: ANION GAP 15.8 meq/L (7-15)
[2023-08-12] MEDS: Simethicone 125 MG Tab.Chew PO ONE (17:23)
[2023-08-12 17:45] VITALS: BP 119/74; PULSE 64
== END 2023-08-12 17:34 | disposition home or self-care (01) ==
LOC: LL.ED 15:00
DX: R10.12 Left upper quadrant pain (principal); E78.00 Pure hypercholesterolemia, unspecified; I10 Essential (primary) hypertension; K21.9 Gastro-esophageal reflux disease without esophagitis; E66.9 Obesity, unspecified; F17.210 Nicotine dependence, cigarettes, uncomplicated; Z68.34 Body mass index [BMI] 34.0-34.9, adult; Z88.5 Allergy status to narcotic agent; Z79.899 Other long term (current) drug therapy
CPT/HCPCS: 36415; 80053; 81003; 82150; 83690; 85025; 93005; 96374; 96375; 99284-25; A9270-GY; J1885; J2405; J3490

== ENCOUNTER 2023-10-23 12:38 | Emergency (ER) | payer BC ==
[2023-10-23] MEDS ORDERED: Ketorolac 30 MG/ML SDV IM ONE (12:44)
[2023-10-23] MEDS ORDERED: predniSONE 20 MG Tab PO ONE (13:41)
[2023-10-23] MEDS ORDERED: traMADol 50 MG Tab PO ONE (13:41)
[2023-10-23 14:00] LABS: BASOPHILS ABSOLUTE AUTO 0.03 K/uL (0.00-0.20); BASOPHILS PERCENT AUTO 0.5 % (0.0-2.0); EOSINOPHILS ABSOLUTE AUTO 0.28 K/uL (0.00-0.50); EOSINOPHILS PERCENT AUTO 4.4 % (0.0-5.0); HEMATOCRIT 41.4 % (34.0-46.0); HEMOGLOBIN 13.4 g/dL (11.7-15.5); LYMPHOCYTES ABSOLUTE AUTO 2.09 K/uL (0.50-3.50); LYMPHOCYTES PERCENT AUTO 33.2 % (10.0-50.0); MEAN CORPUSCULAR HEMOGLOBIN 31.2 pg (28.2-33.3); MEAN CORPUSCULAR HGB CONC 32.4 g/dL (31.7-36.0); MEAN CORPUSCULAR VOLUME 96.3 fL (84.0-98.0); MONOCYTES ABSOLUTE AUTO 0.36 K/uL (0.00-1.00); MONOCYTES PERCENT AUTO 5.7 % (2.0-14.0); NEUTROPHILS ABSOLUTE AUTO 3.54 K/uL (1.40-7.00); NEUTROPHILS PERCENT AUTO 56.2 % (45.0-80.0); PLATELET COUNT,PLT 293 K/uL (150-350); WHITE BLOOD CELL COUNT,WBC 6.3 K/uL (4.0-10.2)
[2023-10-23 14:09] VITALS: PULSE 77
[2023-10-23 14:16] VITALS: BP 128/84
[2023-10-23 14:21] LABS: ALANINE AMINOTRANSFERASE,ALT 28 U/L (12-78); ALBUMIN 3.7 g/dL (3.4-5.0); ALKALINE PHOSPHATASE 155 IU/L (46-116); ANION GAP 8.7 meq/L (7-15); ASPARTATE AMNIOTRANSFERASE,AST 16 U/L (15-37); BILIRUBIN TOTAL 0.2 mg/dL (0.2-1.0); BLOOD UREA NITROGEN,BUN 19 mg/dL (7-18); CALCIUM 8.8 mg/dL (8.5-10.1); CARBON DIOXIDE,CO2 26.3 mmol/L (21.0-32.0); CHLORIDE,CL 105 mmol/L (98-107); CREATININE 0.82 mg/dL (0.51-1.17); GLUCOSE RANDOM 96 mg/dL (70-99); POTASSIUM,K 4.2 mmol/L (3.5-5.1); PROTEIN TOTAL,TP 7.4 g/dL (6.4-8.2); SODIUM,NA 140 mmol/L (136-145)
[2023-10-23 14:25] LABS: ESTIMATED GFR 88 mL/min (>=60)
[2023-10-23] MEDS ORDERED: Nitroglycerin 0.4 MG Tab.SL SL PRN (15:33)
== END 2023-10-23 17:25 | disposition home or self-care (01) ==
LOC: LL.ED 12:38
DX: S32.050A Wedge compression fracture of fifth lumbar vertebra, initial encounter for closed fracture (principal); W00.9XXA Unspecified fall due to ice and snow, initial encounter; I10 Essential (primary) hypertension; K21.9 Gastro-esophageal reflux disease without esophagitis; J40 Bronchitis, not specified as acute or chronic; Z79.899 Other long term (current) drug therapy; Z88.5 Allergy status to narcotic agent
CPT/HCPCS: 36415; 72100; 72131; 72170; 72220; 80053; 85025; 96372; 99284; A9270-GY; J1885; J7512

== ENCOUNTER 2025-01-30 14:22 | Emergency (ER) | payer BC ==
[2025-01-30 14:43] VITALS: BP 137/97; PULSE 85
[2025-01-30] MEDS: oxyCODONE 5 MG Tab PO ONE (14:50)
== END 2025-01-30 16:40 | disposition home or self-care (01) ==
LOC: LL.ED 14:22 → SUPCPDRO 14:22 → LL.ED 16:40
DX: S39.92XA Unspecified injury of lower back, initial encounter (principal); I10 Essential (primary) hypertension; E78.00 Pure hypercholesterolemia, unspecified; Z88.5 Allergy status to narcotic agent; Z79.899 Other long term (current) drug therapy; X58.XXXA Exposure to other specified factors, initial encounter; Y93.89 Activity, other specified
CPT/HCPCS: 72100; 99284; A9270-GY

== ENCOUNTER 2025-04-12 22:12 | Emergency (ER) | payer BC, OTHER ==
[2025-04-12 22:16] VITALS: PULSE 91
[2025-04-12 23:22] VITALS: BP 139/91
== END 2025-04-12 23:30 | disposition home or self-care (01) ==
LOC: LL.ED 22:12
DX: S90.32XA Contusion of left foot, initial encounter (principal); I10 Essential (primary) hypertension; E66.9 Obesity, unspecified; F17.200 Nicotine dependence, unspecified, uncomplicated; J45.909 Unspecified asthma, uncomplicated; K21.9 Gastro-esophageal reflux disease without esophagitis; M19.90 Unspecified osteoarthritis, unspecified site; Z88.5 Allergy status to narcotic agent; Z90.49 Acquired absence of other specified parts of digestive tract; Z90.710 Acquired absence of both cervix and uterus; W22.8XXA Striking against or struck by other objects, initial encounter
CPT/HCPCS: 73630-LT; 99283